=== PATIENT | male | born 1970 | race Caucasian/White ===

== ENCOUNTER 2018-07-16 07:58 | Emergency (ER) | payer OTHER ==
--- NOTE | 2018-07-16 08:17 | Emergency Department Record ---
History of Present Illness - General Chief Complaint: Rapid heartbeat Stated Complaint: FAST HEART RATE Time Seen by Provider: 07/16/18 08:03 Source: Patient, Family Mode of Arrival: Ambulatory Limitations: No limitations - History of Present Illness Initial Comments: 48 yo male presents with a feeling of rapid heart rate at different times over the last week. He states it has occurred 3 nights in the last week after falling asleep. He goes to bed around 9-10pm. He has awoken around 12:30am - 1am with a feeling of rapid heart rate and feeling anxious. He has not slept well for about a week due to feeling anxiety and now feels tired. Gradually the symptoms improve after waking and resolve. He has not had any symptoms during exertion or activity. No chest pain. No syncope. No known underlying CAD. He has HTN. He stopped his Losartan in March due to muscle cramps. Since then BP has been around 130-[address] Bello is his PCP. Complaint: Palpitations -: Days(s) Context: Occurred during rest (onset during sleep) Arrythmia History: Other (No cardiac history) Associated Symptoms: Denies other symptoms, Anxiety (He states he is a worrier all the time) - Related Data Home Medications Medication Instructions Recorded Confirmed Last Taken Cholecalciferol (Vitamin D3) 1 cap PO DAILY 07/16/18 07/16/18 1 Day Ago [Vitamin D3] ~07/15/18 Allergies Allergy/AdvReac Type Severity Reaction Status Date / Time cat dander Allergy DIFFICULTY Verified 07/16/18 08:14 BREATHING Review of Systems Constitutional: Denies: Chills, Fever, Malaise, Night sweats, Weakness, Weight change Eyes: Denies: Eye discharge, Eye pain, Photophobia, Vision change ENT: Denies: Congestion, Throat pain Respiratory: Denies: Cough, Dyspnea, Hemoptysis, Stridor, Wheezes Cardiovascular: Reports: Palpitations. Denies: Chest pain, Dyspnea on exertion , Edema, Syncope Endocrine: Denies: Fatigue, Heat or cold intolerance, Polydipsia, Polyuria Gastrointestinal: Denies: Abdominal pain, Constipation, Diarrhea, Nausea, Vomiting Genitourinary: Denies: Dysuria, Frequency, Hematuria Musculoskeletal: Denies: Arthralgia, Back pain, Joint swelling, Myalgia Skin: Denies: Bruising, Change in color, Rash Neurological: Denies: Headache, Numbness, Weakness Psychiatric: Reports: Anxiety Hematological/Lymphatic: Denies: Blood Clots, Easy bleeding, Easy bruising, Swollen glands Physical Exam - General General Appearance: Alert, Oriented x3, Cooperative, No acute distress Limitations: No limitations - Head Head exam: Atraumatic, Normal inspection - Eye Eye exam: Normal appearance, PERRL. negative: Conjunctival injection, Scleral icterus - ENT ENT exam: Normal exam Ear exam: Normal external inspection Nasal Exam: Normal inspection Mouth exam: Normal external inspection - Neck Neck exam: Normal inspection - Respiratory Respiratory exam: Normal lung sounds bilaterally. negative: Accessory muscle use, Chest wall tenderness, Decreased breath sounds, Prolonged expiratory, Respiratory distress, Rhonchi, Stridor, Wheezes - Cardiovascular Cardiovascular Exam: Regular rate, Normal rhythm, Normal heart sounds. negative : Diastolic murmur, Irregular rhythm, Systolic murmur, Tachycardia Peripheral Pulses: 2+: Radial (R), Radial (L) - GI/Abdominal GI/Abdominal exam: Soft. negative: Tenderness - Rectal Rectal exam: Deferred - exam: Deferred - Extremities Extremities exam: Normal inspection. negative: Pedal edema, Tenderness - Back Back exam: Denies: CVA tenderness (R), CVA tenderness (L) - Neurological Neurological exam: Alert, Normal gait, Oriented X3. negative: Abnormal gait, Altered - Psychiatric Psychiatric exam: Normal affect, Normal mood - Skin Skin exam: Dry, Intact, Normal color, Warm Course - Reevaluation(s) Reevaluation #1: 07/16/18 08:14 EKG #1: 08:09 Rate: 52 Rhythm: sinus [place]: L Intervals: QRS 120 ST segments: normal Prior: none 07/16/18 08:43 Monitor demonstrates HR 55 -65 sinus. No ectopy. 07/16/18 08:55 The labs results were reviewed There are no acute significant abnormalities of the CBC There are no acute significant abnormalities of the CMP 07/16/18 09:46 Troponin is normal after about 5 days of the feeling of palpitations BP 149/107 07/16/18 09:47 We discussed the options of observation vs DC for outpatient cardiology follow up. He is not having any typical anginal symptoms and there have been no arrhythmia on the monitor. I offered overnight in the hospital on the monitor. He declined. He prefers to follow up as scheduled in the cardiology clinic, follow up with his doctor for a possible sleep study. We discussed at length reasons to return immediately to the ED for evaluation as well. 07/16/18 10:17 Appointment was made Thursday with [facility] at [facility] Medical Decision Making - Lab Data Result diagrams: 07/16/18 08:10 07/16/18 08:10 Disposition Disposition: Discharge Clinical Impression: Palpitations, Hypertension Disposition: Home, Self-Care Condition: (1) Good Instructions: Heart Palpitations (ED) Additional Instructions: Call your doctor for the next available follow up appointment to further discuss the sleep study Return to the ER for a recheck if worse, any new concerns or questions or active symptoms You have an appointment for outpatient cardiology follow Thursday in the [facility] Review this ER visit and the tests performed with your family doctor If you have any questions call [phone] for the [facility] Referrals: TERESITA HWANG M.D. [MEDICAL DOCTOR] - [facility] [Provider Group] Forms: Patient Portal Access Time of Disposition: 09:46 Quality - Quality Measures Quality Measures: N/A - Blood Pressure Screening Does Patient Have Any of the Following: Active Dx of HTN Blood Pressure Classification: Hypertensive Reading Systolic Measurement: 170 Diastolic Measurement: 111 Screening for High Blood Pressure: Patient Exclusion, Hx of HTN [[id number]]
[2018-07-16 08:18] LABS: EOS % 4.7 % (0-6); GRAN % 65.5 % (47-80); HEMOGLOBIN 14.9 gm/dl (14.0-18.0); LYMPH % 22.7 % (16-45); MEAN CELL VOLUME 88.5 fl (81-97); MEAN CORPUSCULAR HEMOGLOBIN 30.7 pg (27-33); MEAN CORPUSCULAR HGB CONC 34.7 g/dl (32-36); MEAN PLATELET VOLUME 9.2 fl (7.4-10.4); MONO % 6.1 % (0-9); PLATELET COUNT 227 K/uL (130-400); RED BLOOD COUNT 4.86 M/uL (4.40-5.70); WHITE BLOOD COUNT W/O DIFF 4.9 K/uL (4.2-12.2)
[2018-07-16 08:44] LABS: BLOOD UREA NITROGEN 18 mg/dL (6-20); CREATININE 1.2 mg/dL (0.7-1.2); EST GLOMERULAR FILTRATION RATE > 60 mL/min
[2018-07-16 08:47] LABS: GLUCOSE,RANDOM 112 mg/dL (74-109)
[2018-07-16 08:50] LABS: ALB/GLOB RATIO 1.7 (1.1-1.8); ALBUMIN 4.4 g/dL (4.0-5.0); ALKALINE PHOSPHATASE 55 U/L (40-129); ALT/SGPT 27 U/L (<41); AST/SGOT 23 U/L (10.0-50.0)
--- NOTE | 2018-07-20 09:28 | RADIOLOGY REPORT ---
DATE OF SERVICE: 07/16/2018. TWO-VIEW CHEST CLINICAL HISTORY: Difficulty breathing. TECHNIQUE: Frontal and lateral views of the chest were performed. FINDINGS: Heart size normal. Lung trotter clear. Osseous structures normal. IMPRESSION: Negative chest examination. MTDD
== END 2018-07-16 10:30 | disposition home or self-care (01) ==
LOC: ER 07:58
DX: R00.2 Palpitations (principal); I10 Essential (primary) hypertension
CPT/HCPCS: 71046; 80053; 83735; 84443; 84484; 85025; 93005; 93010; 99284